=== PATIENT | male | born 1965 | race Caucasian/White ===

== ENCOUNTER 2020-01-26 07:58 | Emergency (ER) | payer OTHER ==
[~2020-01-26] VITALS: Ht 170.2 cm; Wt 98.0 kg
[2020-01-26 08:03] VITALS: BP 134/85
--- NOTE | 2020-01-26 08:07 | NUR ---
PT AMBULATED TO ER BED 03
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
--- NOTE | 2020-01-26 09:35 | NUR ---
Patient discharged with v/s stable. Written and verbal after care instructions given and explained. Patient verbalized understanding. Ambulatory with steady gait. All questions addressed prior to discharge. Advised to follow up with PMD.
[2020-01-26 09:36] VITALS: BP 136/82
== END 2020-01-26 09:35 | disposition home or self-care (01) ==
LOC: MED 07:58
DX: M54.2 Cervicalgia (principal); M54.5 Low back pain; V89.2XXA Person injured in unspecified motor-vehicle accident, traffic, initial encounter; Y93.89 Activity, other specified; Y92.410 Unspecified street and highway as the place of occurrence of the external cause; Y99.8 Other external cause status
CPT/HCPCS: 99281

== ENCOUNTER 2022-11-29 13:53 | Emergency (ER) | payer OTHER ==
[~2022-11-29] VITALS: Ht 266.7 cm; Wt 83.9 kg
[2022-11-29 13:57] VITALS: BP 158/83
--- NOTE | 2022-11-29 14:01 | NUR ---
PT AMB TO BED 6
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
[2022-11-29] MEDS ORDERED: KETOROLAC 60 MG/2 ML VIAL IM ONE (14:45)
[2022-11-29 14:56] LABS: APPEARANCE,URINE CLEAR (CLEAR); BILIRUBIN,URINE NEGATIVE (NEGATIVE); BLOOD, URINE TRACE-I (NEGATIVE); COLOR,URINE YELLOW (YELLOW); LEUKOCYTE ESTERASE ,URINE NEGATIVE (NEGATIVE); NITRITE, URINE NEGATIVE (NEGATIVE); UGLUCOSE NEGATIVE (NEGATIVE)
[2022-11-29 14:58] LABS: RBC,URINE 0-5 /HPF (0-5); WBC,URINE NONE SEEN /HPF (0-5)
[2022-11-29] MEDS ORDERED: ACET-8905 PO (15:23)
[2022-11-29] MEDS ORDERED: IBUP-2213 PO (15:23)
[2022-11-29 15:38] VITALS: BP 132/81
--- NOTE | 2022-11-29 15:38 | NUR ---
The patient's care was reviewed and supervised by Luis Angel Noriega RN.
--- NOTE | 2022-11-29 15:38 | NUR ---
Patient discharged with v/s stable. Written and verbal after care instructions FOR INGUINAL HERNIA given and explained. Patient alert, oriented and verbalized understanding of instructions. Ambulatory with steady gait. All questions addressed prior to discharge. ID band removed. Patient advised to follow up with PMD. Rx of HYDROCODONE AND IBUPROFEN given. Opportunity to ask questions provided and answered.
== END 2022-11-29 15:38 | disposition home or self-care (01) ==
LOC: MED 13:53
DX: R10.31 Right lower quadrant pain (principal); F17.200 Nicotine dependence, unspecified, uncomplicated
CPT/HCPCS: 81001; 96372; 99283; J1885